=== PATIENT | female | born 1985 | race Caucasian/White ===

== ENCOUNTER 2018-10-03 12:54 | Emergency (ER) | payer OTHER | END 2018-10-03 15:10 | disposition home or self-care (01) | LOC: ED 12:54 ==

== ENCOUNTER 2018-10-10 16:33 | Emergency (ER) | payer OTHER ==
[~2018-10-10] VITALS: Ht 167.6 cm; Wt 74.8 kg
[2018-10-10 16:38] VITALS: BP 139/82; Ht 167.6 cm; Wt 74.8 kg
== END 2018-10-10 18:26 | disposition home or self-care (01) ==
LOC: ED 16:33
DX: S43.402D Unspecified sprain of left shoulder joint, subsequent encounter (principal); W22.8XXD Striking against or struck by other objects, subsequent encounter

== ENCOUNTER 2019-01-25 14:09 | Emergency (ER) | payer OTHER ==
[~2019-01-25] VITALS: Ht 167.6 cm; Wt 74.8 kg
[2019-01-25 14:14] VITALS: Ht 167.6 cm; Wt 74.8 kg
[2019-01-25 14:53] LABS: CALCIUM 9.4 mg/dL (8.5-10.1); CARBON DIOXIDE 31.5 mmol/L (21-32); CHLORIDE SERUM 104 mmol/L (98-107); CREATININE SERUM 0.7 mg/dL (0.6-1.0); GFR1 > 60 mL/min; GLUCOSE SERUM 77 mg/dL (74-106); POTASSIUM SERUM 3.9 mmol/L (3.5-5.1); SODIUM SERUM 142 mmol/L (136-145)
[2019-01-25 14:54] LABS: BASOPHIL % 0.9 % (0-2); PLATELET COUNT 276 x10^3mcL (130-400); RED CELL DISTRIBUTION WIDTH 13.1 % (11.5-14.5)
[2019-01-25 14:58] LABS: ALBUMIN 3.7 g/dL (3.4-5.0); ALKALINE PHOSPHATASE 47 U/L (46-116); ALT/SGPT 26 U/L (14-59); AST/SGOT 14 U/L (15-37); BILIRUBIN TOTAL 0.3 mg/dL (0.20-1.00); LIPASE 79 IU/L (73-393); TOTAL PROTEIN, SERUM 7.7 g/dL (6.4-8.2)
[2019-01-25 19:23] VITALS: BP 140/89
== END 2019-01-25 19:21 | disposition home or self-care (01) ==
LOC: ED 14:09
DX: K80.20 Calculus of gallbladder without cholecystitis without obstruction (principal); J45.909 Unspecified asthma, uncomplicated; Z88.0 Allergy status to penicillin
CPT/HCPCS: 36415; Q0092